=== PATIENT | female | born 2000 | race African-American/Black ===

== ENCOUNTER 2021-12-08 23:39 | Emergency (ER) | payer MEDICAID ==
[~2021-12-08] VITALS: Ht 180.3 cm; Wt 85.2 kg
[2021-12-09 00:18] VITALS: BP 113/62
[2021-12-09] MEDS ORDERED: ACETAMINOPHEN 325MG TABLET PO STA (01:58)
[2021-12-09] MEDS ORDERED: SODIUM CHLORIDE 0.9% 1,000 ML IV ONE (02:00)
[2021-12-09] MEDS ORDERED: DIPHENHYDRAMINE 50MG/ML VIAL IV ONE (02:00)
[2021-12-09] MEDS ORDERED: METOCLOPRAMIDE HCL 10MG/2ML VIAL IV ONE (02:00)
[2021-12-09 03:03] LABS: CHLORIDE 108 mEq/L (98-107)
[2021-12-09 03:10] LABS: ETHANOL BLOOD < 10 mg/dL
[2021-12-09 03:21] LABS: BASOPHILS % 0.9 % (0.0-2.0); EOSINOPHILS % 2.4 % (0.0-5.0); HEMATOCRIT. 36.6 % (36.0-48.0); HEMOGLOBIN. 12.1 g/dL (12.0-16.0); MEAN CORPUSCULAR HEMOGLOBIN 28.3 pg (28.0-32.0); MEAN CORPUSCULAR VOLUME 85.8 fL (81.0-99.0); MEAN PLATELET VOLUME 8.8 fl (7.4-10.4); MONOCYTES % 9.4 % (2.0-8.0); NEUTROPHILS % 38.3 % (40.0-76.0); PLATELET 287 x1000/uL (130-400); RED BLOOD CELL COUNT 4.26 mill/uL (4.2-5.4)
[2021-12-09 22:39] LABS: *AMPHETAMINES SCREEN URINE NEGATIVE (NEGATIVE); *BARBITURATES SCREEN URINE NEGATIVE (NEGATIVE); *BENZODIAZEPINES SCREEN URINE NEGATIVE (NEGATIVE); *COCAINE SCREEN URINE NEGATIVE (NEGATIVE); CANNABINOID URINE SCREEN NEGATIVE (NEGATIVE); METHADONE URINE SCREEN NEGATIVE (NEGATIVE); OPIATES URINE SCREEN NEGATIVE (NEGATIVE); PHENCYCLIDINE URINE SCREEN NEGATIVE (NEGATIVE)
[2021-12-10 10:47] LABS: CLARITY URINE TURBID (CLEAR); COLOR URINE YELLOW (YELLOW); KETONES URINE NEGATIVE (NEGATIVE); LEUKOCYTE ESTERASE URINE 1+ (NEGATIVE); NITRITE URINE POSITIVE (NEGATIVE); OCCULT BLOOD URINE NEGATIVE (NEGATIVE); PH URINE 5.5 (4.5-8.0); PROTEIN URINE NEGATIVE (NEGATIVE); SPECIFIC GRAVITY URINE 1.031 (1.005-1.030); UROBILINOGEN URINE 0.2 E.U./dL (0.2-1.0)
== END 2021-12-09 02:47 | disposition left against medical advice (07) ==
LOC: ER 12-09 00:22
DX: R10.9 Unspecified abdominal pain (principal); R07.89 Other chest pain; R51.9 Headache, unspecified; M79.18 Myalgia, other site
CPT/HCPCS: 36415; 76770; 80053; 80305; 80320; 81003; 83690; 85025; 96361; 96374; 96375; 99284; J1200; J2765; J7030; Z7610; G0480